=== PATIENT | female | born 1950 | race Caucasian/White ===

== ENCOUNTER → 2018-05-21 | Outpatient (CLI) | payer MEDICARE, OTHER | END | disposition home or self-care (01) | LOC: PCVCCLINIC 13:08 | DX: E78.5 Hyperlipidemia, unspecified (principal) | CPT/HCPCS: 80061 ==

== ENCOUNTER → 2018-06-01 | Outpatient (CLI) | payer MEDICARE, OTHER ==
[~2018-06-01] MED LIST: REGADENOSON 0.4 MG/5 ML DISP.SYRIN. IV
== END | disposition home or self-care (01) ==
LOC: PCVCIMAG 15:59
DX: J44.9 Chronic obstructive pulmonary disease, unspecified (principal); F17.200 Nicotine dependence, unspecified, uncomplicated
CPT/HCPCS: 78452; 93017; A9500; J2785

== ENCOUNTER → 2019-03-02 | Outpatient (CLI) | payer MEDICARE, OTHER ==
--- NOTE | 2019-03-02 10:01 | PCVCIMAG ---
APPROVED REPORT Study performed: 03/02/2019 09:01:10 EXAM: Comprehensive 2D, Doppler, and color-flow Echocardiogram Patient Location: Echo lab Status: routine BSA: 1.92 HR: 92 bpmBP: 130/80 mmHg Rhythm: NSR Other Information Study Quality: Adequate Risk Factors: Cardiac Risk Factors: Hyperlipidemia Indications Murmur COPD, chest pain 2D Dimensions IVSd: 16.09 (7-11mm)LVOT Diam: 21.04 (18-24mm) LVDd: 42.70 mm PWd: 10.86 (7-11mm)Ascending Ao: 34.10 (22-36mm) LVDs: 36.23 (25-40mm) Left Atrium: 42.57 (27-40mm) Aortic Root: 26.69 mm LV Single Plane 4CH: 65.54 % LV Single Plane 2CH: 54.48 % Biplane EF: 60.5 % Volumes Left Atrial Volume (Systole) Single Plane 4CH: 41.59 mLSingle Plane 2CH: 41.92 mL LA ESV Index: 22.00 mL/m2 Aortic Valve AoV Peak Uriah.: 2.42 m/s AO Peak Gr.: 23.35 mmHgLVOT Max P.30 mmHg AO Mean Gr.: 13.65 mmHg AO V2 Mean: 1.79 m/sLVOT Max V: 1.04 m/s AO V2 VTI: 49.51 cm COY Vmax: 1.49 cm2 Mitral Valve E/A Ratio: 0.7 MV Decel. Time: 139.13 ms MV E Max Uriah.: 0.87 m/s MV A Uriah.: 1.23 m/s TDI E/Lateral E': 12.43E/Medial E': 12.43 Medial E' Uriah.: 0.07 m/s Lateral E' Uriah.: 0.07 m/s Pulmonary Valve PV Peak Gr.: 2.85 mmHg Pulmonary Vein P Vein S: 0.69 m/sP Vein A: 0.34 m/s P Vein D: 0.33 m/sP Vein A Dur.: 83.0 msec P Vein S/D Ratio: 2.09 Tricuspid Valve TR Peak Uriah.: 2.41 m/s TR Peak Gr.: 23.15 mmHg Left Ventricle The left ventricle is normal size. There is normal LV segmental wall motion. Mild concentric left ventricular hypertrophy. Left ventricular systolic function is normal. The left ventricular ejection fraction is within the normal range. LVEF is 60-65%. The left ventricular diastolic function is normal. Right Ventricle The right ventricle is normal size. The right ventricular systolic function is normal. Atria The left atrium size is normal. The right atrium size is normal. Aortic Valve The Aortic valve is sclerotic. Trace aortic regurgitation. Peak aortic gradient is 24mmhg. Mean gradient is 14mmHg. Calculated aortic valve area is 1.5cm2. Mitral Valve The mitral valve is normal in structure. Mild mitral regurgitation. No evidence of mitral valve stenosis. Tricuspid Valve The tricuspid valve is normal in structure. Trace tricuspid regurgitation. Pulmonary artery pressure is 30mmHg. Pulmonic Valve The pulmonary valve is normal in structure. There is no pulmonic valvular regurgitation. Great Vessels The aortic root is normal in size. IVC is normal in size and collapses >50% with inspiration. Pericardium There is no pericardial effusion. <Conclusion> The left ventricle is normal size. LVEF is 60-65%. The Aortic valve is sclerotic. Trace aortic regurgitation. Peak aortic gradient is 24mmhg. Mean gradient is 14mmHg. Calculated aortic valve area is 1.5cm2. The mitral valve is normal in structure. Mild mitral regurgitation. The tricuspid valve is normal in structure. Trace tricuspid regurgitation. Pulmonary artery pressure is 30mmHg. The pulmonary valve is normal in structure. There is no pericardial effusion.
== END | disposition home or self-care (01) ==
LOC: PCVCIMAG 09:23
PROVIDERS: ATTEND Internal Medicine
DX: I34.0 Nonrheumatic mitral (valve) insufficiency (principal); J44.9 Chronic obstructive pulmonary disease, unspecified; R07.89 Other chest pain; Z88.0 Allergy status to penicillin
CPT/HCPCS: 93306